=== PATIENT | male | born 1935 | race Caucasian/White ===

== ENCOUNTER → 2016-07-25 | Outpatient (CLI) | payer MEDICARE, OTHER | END | disposition home or self-care (01) | LOC: GMAB 10:33 | PROVIDERS: ATTEND Family Medicine | DX: Z12.5 Encounter for screening for malignant neoplasm of prostate (principal); I10 Essential (primary) hypertension | CPT/HCPCS: 84443; G0103 ==

== ENCOUNTER → 2017-08-03 | Outpatient (CLI) | payer MEDICARE, OTHER | END | disposition home or self-care (01) | LOC: GMAB 10:11 | PROVIDERS: ATTEND Family Medicine | DX: Z12.5 Encounter for screening for malignant neoplasm of prostate (principal); I10 Essential (primary) hypertension | CPT/HCPCS: 84443; G0103 ==

== ENCOUNTER → 2017-08-24 | Outpatient (CLI) | payer MEDICARE, OTHER ==
--- NOTE | 2017-08-25 08:59 | CT ---
EXAM DESCRIPTION: Lumbar Spine: Computed Tomography. CLINICAL HISTORY: LOW BACK PAIN COMPARISON: None Available. TECHNIQUE: Spiral, axial 2.5 mm scans through the lumbarspine without contrast. Coronal and sagittal 2.0 mm Reconstructions. Total Exam DLP: 462.83 mGy-cm. This exam was performed according to our departmental dose-optimization program which includes automated exposure control, adjustment of the mA and/or kV according to patient size and/or use of iterative reconstruction technique; to reduce radiation dose to as low as reasonably achievable (ALARA). FINDINGS: L5-S1: Anterior disc bulge and endplate ridging. Small Schmorl's node in the superior L1 endplate. Posterior midline disc bulge with calcification abutting the thecal sac. Disc bulge into the left foramen abutting the left L5 nerve with moderate foraminal narrowing. Facet arthrosis and disc bulge into the right foramen resulting in stenosis. Minimal arthrosis of the left facet. Mild canal narrowing. L4-5: Minimal anterior disc bulging and endplate ridging. Minimal calcification of the anterior disc. Advanced spondylosis on the right side of the disc and disc space loss, and endplate spurs, with Schmorl's node inferior L4. Disc osteophyte complex encroaching on the foramen. Posterior midline disc bulge. Mild canal and foraminal narrowing. Advanced arthrosis right facet and minimal arthrosis left facet. L3-4: Anterior disc bulge and endplate ridging. Minimal posterior disc bulge with calcification in the disc. Mild spondylosis on the right with disc spur complex encroaching on the foramen which is moderately narrowed. Also facet arthrosis. Mild canal narrowing left foramen patent. Minimal left facet arthrosis. L2-3: Anterior disc bulge with endplate spurs. Gas formation in the disc space. Minimal depression superior L3 endplate. Inferior L2 Schmorl's node. Grade 1 retrolisthesis. Posterior broad-based disc bulge 4 mm. Disc bulge into the left foramen. Moderate narrowing right foramen. Arthrosis and subluxation of the right facet with minimal widening of the left facet. Flavum ligament hypertrophy. L1-2: Anterior disc bulge and endplate ridging. Left side spondylosis with disc osteophyte complex encroaching on the foramen which is moderately narrowed. Posterior broad-based disc bulge with calcification and mild narrowing of the canal. Right foramen is patent. Minimal bilateral facet arthrosis and flavum ligament hypertrophy. T12-L1: Anterior disc bulge and endplate spurs and bridging to the left of midline. Disc space loss with anterior gas formation. Schmorl's nodes in the endplates larger superior than inferior. Minimal posterior disc bulge. Bilateral foramina are patent. Mild bilateral facet arthrosis and flavum ligament hypertrophy. Mild canal narrowing. No compression type vertebral body fractures. L3-S1 levoscoliosis. T12-L3 dextroscoliosis. IMPRESSION: 1. Multiple levels of disc space loss, spondylosis, disc bulging, canal and foraminal narrowing or stenosis, and facet arthrosis. No compression type vertebral body fractures. Lower lumbar levoscoliosis. Upper lumbar and thoracic dextroscoliosis. 2. Disc and facet complex bulge into the right L5-S1 foramen with stenosis. Correlate for right L5 radiculopathy. 3. Right side L4-5 spondylosis with disc spur complex encroaching on the foramen. Correlate for right L4 radiculopathy. 4. L3-4 right side spondylosis with moderate narrowing of the foramen. Bilateral facet arthrosis. Mild canal narrowing. 5. Diffuse disc desiccation and disc space loss. Left side spondylosis with disc bulge into the left foramen. Grade 1 retrolisthesis. 6. Left side spondylosis L1-2 with moderate narrowing of the foramen. Minimal bilateral facet arthrosis. Electronically signed by: Samuel Genao MD 08/25/2017 8:58 AM CDT
--- NOTE | 2017-08-25 09:55 | CT ---
EXAM DESCRIPTION: Thoracic Spine: Computed Tomography. CLINICAL HISTORY: PAIN IN THORACIC SPINE COMPARISON: CT scan lumbar spine on the same visit. TECHNIQUE: Spiral, axial 5.0 mm scans through the thoracicspine without contrast. Coronal and sagittal 2.0 mm Reconstructions. Total Exam DLP: 1065.20 mGy-cm. This exam was performed according to our departmental dose-optimization program which includes automated exposure control, adjustment of the mA and/or kV according to patient size and/or use of iterative reconstruction technique; to reduce radiation dose to as low as reasonably achievable (ALARA). FINDINGS: Ankylosis anterior disc spaces disc space narrowing and disc calcification from T5-6 down to T11-12. Ankylosis is also lateral. No compression type vertebral body fractures. Broad dextroscoliosis thoracolumbar spine and broad levoscoliosis cervical thoracic spine. T11-12 Anterior endplate spurs to the left of midline , with endplate Schmorl's nodes. Minimal facet arthrosis. No significant canal or foraminal narrowing. Calcification T10-11 disc with right anterior large endplate spurs. T10 endplate Schmorl's node. Bilateral mild foraminal narrowing with facet arthrosis but no canal stenosis. T9-10 disc space calcification in the midline and to the right of midline with anterior right side spurs. Right facet arthrosis and narrowing of the foramen but no canal or foraminal stenosis. T8-9 disc space narrowing with midline and right side calcification and anterior right endplate spurs. Minimal narrowing of the right foramen by facet arthrosis. No canal or foraminal stenosis. T7-T8 calcification midline and to the right of midline anterior right endplate spurs. Bilateral foramina are patent. No posterior disc bulge. No canal stenosis. T6-T7 disc space loss calcification anterior ankylosis and anterior right side disc spur. Mild left foraminal narrowing. No posterior disc bulge and no canal or foraminal stenosis. T5-T6 disc space narrowing, anterior spurs and ankylosis. Schmorl's nodes no posterior bulging. Narrowing of the left foramen. No canal or foraminal stenosis. T4-T5 anterior disc space narrowing with anterior right spur and ankylosis. Left foraminal narrowing. No posterior disc bulge. No canal or foraminal stenosis. T3-T4 anterior midline and bilateral anterior endplate spurs and spondylosis. Mild bilateral facet arthrosis and foraminal narrowing but no stenosis. No posterior disc bulge. No significant canal narrowing. T2-T3 left anterior bridging spurs mild bilateral foraminal narrowing. No posterior disc bulge. T1-T2 disc space maintained. Minimal foraminal narrowing with facet arthrosis. No posterior disc bulging. No canal or foraminal stenosis. IMPRESSION: 1. Multiple levels of the anterior disc spurs. Anterior and lateral ankylosis. Disc space narrowing and multiple levels of Schmorl's nodes. Multiple levels of Facet arthrosis. Bilateral foraminal narrowing. Mild scoliosis. 2. No canal or foraminal stenosis. No significant disc bulge or herniation. No paravertebral soft tissue mass. No vertebral body compression. Electronically signed by: Samuel Genao MD 08/25/2017 9:53 AM CDT
== END ==
LOC: CT 08:56
PROVIDERS: ATTEND Family Medicine
DX: M51.26 Other intervertebral disc displacement, lumbar region (principal); M47.896 Other spondylosis, lumbar region; M51.44 Schmorl's nodes, thoracic region; M46.04 Spinal enthesopathy, thoracic region

== ENCOUNTER → 2020-04-21 | Outpatient (CLI) | payer MEDICARE, OTHER | LOC: GMA MATASK 10:31 | PROVIDERS: ATTEND Family Medicine | DX: E55.9 Vitamin D deficiency, unspecified (principal); Z12.5 Encounter for screening for malignant neoplasm of prostate; I10 Essential (primary) hypertension | CPT/HCPCS: 82306; 84443; G0103 ==

== ENCOUNTER → 2020-05-19 | Outpatient (CLI) | payer MEDICARE, OTHER | LOC: YCFC.O 09:06 | PROVIDERS: ATTEND Family Medicine | DX: R31.9 Hematuria, unspecified (principal) ==

== ENCOUNTER → 2020-06-26 | Outpatient (CLI) | payer MEDICARE, OTHER | LOC: YCFC.O 14:00 | PROVIDERS: ATTEND Family Medicine | DX: R31.9 Hematuria, unspecified (principal) ==